=== PATIENT | female | born 1970 | race Caucasian/White ===

== ENCOUNTER 2021-07-08 03:24 | Emergency (ER) | payer BC ==
[~2021-07-08] VITALS: Ht 160 cm; Wt 75.7 kg
[2021-07-08 03:25] VITALS: BP 156/87
--- NOTE | 2021-07-08 03:25 | NUR ---
TO BED AMBULATORY
--- NOTE | 2021-07-08 03:30 | NUR ---
SEEN AND EXAMINED BY RADHA
[2021-07-08 03:35] VITALS: BP 156/87
[2021-07-08] MEDS ORDERED: SULFAMETH/TRIMETH DS 800/160MG 1 TAB PO ONE (03:40)
[2021-07-08] MEDS ORDERED: IBUPROFEN 800 MG TAB PO ONE (03:40)
[2021-07-08] MEDS ORDERED: CEPH-588 PO (03:41)
[2021-07-08] MEDS ORDERED: IBUP-2218 PO (03:41)
[2021-07-08] MEDS ORDERED: KETOROLAC 60 MG/2 ML VIAL IM ONE (04:05)
--- NOTE | 2021-07-08 04:22 | NUR ---
d/c with [facility]. d/c education given. opportunity to ask questions given and answered. rx of keflex and motrin given.
== END 2021-07-08 04:26 | disposition home or self-care (01) ==
LOC: MED 03:24
DX: L03.312 Cellulitis of back [any part except buttock and flank] (principal); M25.519 Pain in unspecified shoulder; Z79.899 Other long term (current) drug therapy
CPT/HCPCS: 96372; 99283; J1885